=== PATIENT | female | born 1975 | race Caucasian/White ===

== ENCOUNTER 2020-08-26 03:02 | Outpatient (CLI) | payer MEDICAID, SELFPAY ==
[2020-08-26 12:38] LABS: ALT 36 U/L (14-59); AST 21 U/L (15-37); Albumin 4.2 g/dL (3.4-5.0); Alkaline Phosphatase 43 U/L (46-116); BUN 12 mg/dL (7-18); Bilirubin, Total 0.7 mg/dL (0.2-1.0); CREATININE 0.7 mg/dL (0.55-1.02); Chloride 103 mmol/L (98-107); Glucose 96 mg/dL (74-106); Potassium 3.7 mmol/L (3.5-5.1); Sodium 140 mmol/L (136-145); TSH (W/Ref FT4) 0.89 uIU/mL (0.36-3.74); Total Protein 7.2 g/dL (6.4-8.2)
== END 2020-08-26 03:03 | disposition home or self-care (01) ==
LOC: LOS 03:08
DX: E03.9 Hypothyroidism, unspecified (principal); Z13.228 Encounter for screening for other metabolic disorders; Z00.00 Encounter for general adult medical examination without abnormal findings
CPT/HCPCS: 36415; 80053; 84443

== ENCOUNTER 2020-10-15 03:20 | Outpatient (CLI) | payer MEDICAID, SELFPAY ==
--- NOTE | 2020-10-15 06:45 | DI.MAMMO_ITS ---
Exam(s) MAMMO SCREENING EXAM: MAMMO SCREENING CLINICAL HISTORY: screening,Z12.39 TECHNIQUE: Mammograms were interpreted according to the usual protocol including computer analysis w [employer] CAD system, tomosynthesis and C-view imaging. COMPARISON: 2013 from [facility] FINDINGS: The breasts are composed of heterogeneously dense fibroglandular densities, Breast Density category C . No suspicious masses or suspicious microcalcifications are seen. No skin thickening or abnormal axillary lymph nodes are seen. There has been no significant change from prior exam. IMPRESSION: BI-RADS Category 1, Negative mammogram. Yearly screening mammography is recommended. Breast Density Category C, heterogeneously Dense. The mammogram demonstrates the patient's breast tissue is dense. Dense breast tissue is very common a nd is not abnormal but dense breast tissue can make it harder to find cancer on a mammogram. Also, de nse breast tissue may increase breast cancer risk. This information about the result of the mammogram report was provided to the patient to raise their awareness. Use this report when you speak with the patient about their risks for breast cancer, which includes their family history. At that time, you may recommend additional screening tests (Ultrasound or MRI) as they might be useful based on their r isk. A negative radiographic report should not delay biopsy if a dominant or clinically suspicious mass is present. Up to ten percent of cancers are not identified on mammography. A negative report may reinforce clinical impression. Adenosis and dense breasts may obscure an underlying neoplasm. False positive reports average 6 to 10%.
== END 2020-10-15 03:40 ==
DX: Z12.31 Encounter for screening mammogram for malignant neoplasm of breast (principal)
CPT/HCPCS: 77063; 77067

== ENCOUNTER 2020-11-05 01:31 | Outpatient (CLI) | payer MEDICAID, SELFPAY ==
[2020-11-08 10:44] LABS: Lyme Ab w Rflx to Lyme Confirm Negative (Negative)
[2020-11-08 18:51] LABS: Anaplasma phagocytophilum Negative (Negative); B. miyamotoi PCR Negative (Negative); Babesia divergens/MO-1 Negative (Negative); Babesia duncani Negative (Negative); Babesia microti Negative (Negative); Ehrlichia chaffeensis Negative (Negative); Ehrlichia ewingii/canis Negative (Negative); Ehrlichia muris eauclairensis Negative (Negative)
== END 2020-11-05 01:32 | disposition home or self-care (01) ==
LOC: LOS 01:31
DX: R51.9 Headache, unspecified (principal); W57.XXXA Bitten or stung by nonvenomous insect and other nonvenomous arthropods, initial encounter; T14.8XXA Other injury of unspecified body region, initial encounter
CPT/HCPCS: 36415; 87798; 86618

== ENCOUNTER 2021-05-03 04:18 | Outpatient (CLI) | payer MEDICAID, SELFPAY ==
[2021-05-03 09:37] LABS: Abs Immature Grans 0.02 10^3/uL (0.0-0.06); Absolute Basophil Count 0.04 10^3/uL (0.0-0.2); Absolute Eosinophil Count 0.31 10^3/uL (0.0-0.7); Absolute Lymphocyte Count 2.18 10^3/uL (1.2-3.4); Absolute Monocyte Count 0.67 10^3/uL (0.1-0.8); Absolute Neutrophil Count 3.79 10^3/uL (1.2-6.7); Basophils % 0.6; Eosinophils % 4.4; HCT 37.7 % (36.0-46.0); HGB 12.6 g/dL (11.2-15.7); Immature Grans % 0.3; Lymphocytes % 31.1; MCH 31.6 pg (27.0-33.0); MCHC 33.4 % (32.0-36.0); MCV 94.5 fL (80-95); MPV 9.2 fL (8.0-11.0); Monocytes % 9.6; Nucleated RBC 0 %; Platelet Count 289 10^3/uL (130-400); RBC 3.99 10^6/uL (3.93-5.22); RDW 12.5 % (11.7-14.6); RDW-SD 43.8 fL; WBC 7.01 10^3/uL (4.4-10.8)
[2021-05-03 10:00] LABS: Hemoglobin A1C 5.3 % (<5.7)
[2021-05-03 10:37] LABS: Iron 145 ug/dL (50-170); Total Iron Binding Capacity 317 ug/dL (250-450); Transferrin Sat 46 % (15-50)
[2021-05-03 10:48] LABS: TSH (W/Ref FT4) 1.31 uIU/mL (0.36-3.74)
[2021-05-03 10:54] LABS: ALT 28 U/L (14-59); AST 13 U/L (15-37); Alkaline Phosphatase 43 U/L (46-116); Anion Gap 9.7 mmol/L (3-11); BUN 11 mg/dL (7-18); Bilirubin, Total 0.5 mg/dL (0.2-1.0); CO2 25.3 mmol/L (21.0-32.0); CREATININE 0.6 mg/dL (0.55-1.02); Calcium 8.8 mg/dL (8.5-10.1); Calculated LDL 115 mg/dL (<100); Chloride 101 mmol/L (98-107); Cholesterol 198 mg/dL (<200); Ferritin 34 ng/mL (8-252); Glucose 91 mg/dL (74-106); HDL Cholesterol 64 mg/dL (40-60); Potassium 4.3 mmol/L (3.5-5.1); Sodium 136 mmol/L (136-145); T4 4.3 ug/mL (4.7-13.3); Total Protein 7.4 g/dL (6.4-8.2); Triglyceride 97 mg/dL (<150)
[2021-05-03 16:15] LABS: T3,Free 3.9 pg/mL (2.8-5.3)
[2021-05-03 16:33] LABS: T3, Total 166 ng/dL (97-169)
[2021-05-04 10:12] LABS: DHEA Sulfate 87 ug/dL (56-283)
[2021-05-04 14:50] LABS: Zinc, Serum 0.97 mcg/mL (0.66-1.10)
[2021-05-05 00:42] LABS: Vitamin D 25 Total 34.3 ng/mL (30-100)
[2021-05-05 09:55] LABS: Lipoprotein (a) 58 nmol/L (<75)
== END 2021-05-03 04:19 | disposition home or self-care (01) ==
LOC: LBO 04:18
PROVIDERS: Visit Provider Naturopath
DX: E03.9 Hypothyroidism, unspecified (principal); E78.5 Hyperlipidemia, unspecified; E55.9 Vitamin D deficiency, unspecified; L65.9 Nonscarring hair loss, unspecified
CPT/HCPCS: 36415; 80053; 80061; 82306; 82627; 83695; 82728; 83036; 83540; 83550; 84436; 84443; 84480; 84481; 84630; 85025

== ENCOUNTER 2021-08-25 18:21 | Outpatient (CLI) | payer MEDICAID, SELFPAY ==
[2021-08-25 15:57] LABS: FREE T4 0.62 ng/dL (0.76-1.46); TSH 0.72 uIU/mL (0.36-3.74)
[2021-08-25 22:28] LABS: T3,Free 4.5 pg/mL (2.8-5.3)
== END 2021-08-25 18:22 | disposition home or self-care (01) ==
LOC: LBO 18:23
PROVIDERS: Visit Provider Naturopath
DX: R19.5 Other fecal abnormalities (principal); E03.9 Hypothyroidism, unspecified
CPT/HCPCS: 36415; 84439; 84443; 84481; 84482

== ENCOUNTER 2021-08-26 17:50 | Outpatient (REF) | payer MEDICAID, SELFPAY ==
[2021-08-29 13:53] LABS: Helicobacter pylori Ag, Feces Negative (Negative)
[2021-08-29 18:01] LABS: Calprotectin <50.0 mcg/g
== END 2021-08-26 17:51 | disposition home or self-care (01) ==
LOC: LBN 17:50
PROVIDERS: Visit Provider Naturopath
DX: R19.5 Other fecal abnormalities (principal)
CPT/HCPCS: 87338; 83630; 83993

== ENCOUNTER 2021-10-18 02:45 | Outpatient (CLI) | payer MEDICAID, SELFPAY ==
[2021-10-18 13:02] LABS: FREE T4 0.63 ng/dL (0.76-1.46); TSH 1.98 uIU/mL (0.36-3.74)
[2021-10-18 13:19] LABS: T4 2.8 ug/mL (4.7-13.3)
[2021-10-19 17:42] LABS: T3,Free 3.6 pg/mL (2.8-5.3)
[2021-10-19 17:55] LABS: T3, Total 150 ng/dL (97-169)
== END 2021-10-18 02:46 | disposition home or self-care (01) ==
LOC: LOS 02:45
PROVIDERS: Visit Provider Naturopath
DX: E03.9 Hypothyroidism, unspecified (principal)
CPT/HCPCS: 36415; 84436; 84439; 84443; 84480; 84481; 84482

== ENCOUNTER 2021-11-15 03:33 | Outpatient (CLI) | payer MEDICAID, SELFPAY ==
[2021-11-15 10:24] LABS: Iron 97 ug/dL (50-170); Total Iron Binding Capacity 317 ug/dL (250-450); Transferrin Sat 31 % (15-50)
[2021-11-15 10:46] LABS: Ferritin 38 ng/mL (8-252); T4 4.8 ug/mL (4.7-13.3); TSH 1.51 uIU/mL (0.36-3.74)
[2021-11-15 11:04] LABS: FREE T4 0.65 ng/dL (0.76-1.46)
[2021-11-15 18:31] LABS: T3,Free 3.5 pg/mL (2.8-5.3)
[2021-11-15 18:45] LABS: T3, Total 149 ng/dL (97-169)
[2021-11-15 20:45] LABS: Thyroperoxidase Antibody <28 U/mL (<=60)
[2021-11-15 20:47] LABS: Thyroglobulin Antibody 69 U/mL (<=60)
[2021-11-17 04:53] LABS: Vitamin D 25 Total 44.3 ng/mL (30-100)
[2021-11-18 14:24] LABS: T3 (Triiodothyronine) Reverse 7.3 ng/dL (10-24)
[2021-11-23 16:30] LABS: TSH, Sensitive 1.5 mIU/L
== END 2021-11-15 03:34 | disposition home or self-care (01) ==
LOC: LBO 03:33
PROVIDERS: Visit Provider Naturopath
DX: R89.1 Abnormal level of hormones in specimens from other organs, systems and tissues (principal); E55.9 Vitamin D deficiency, unspecified; R53.83 Other fatigue; E03.9 Hypothyroidism, unspecified
CPT/HCPCS: 36415; 82306; 82728; 83540; 83550; 84436; 84439; 84443; 84480; 84481; 84482; 86376; 86800

== ENCOUNTER 2022-05-31 11:23 | Outpatient (REF) | payer MEDICAID, SELFPAY ==
--- NOTE | 2022-05-31 09:07 | PAPFT_PTH ---
PATIENT: Jazmyne Nash LOC: [facility] U#:[id number] AGE/SX: 46/F ROOM: RE05/31/[address]: Ninoska Dey : 1975 BED: DIS: 05/31/2022 SPEC #: [id number] RECD: 05/31/22 12:55 STATUS: IVONNE REJanessa #: [id number] ADRIANNE: 05/31/22 09:[address]: Ninoska Dey DEPT: [facility] Cytology RECD BY: Rohini David ENTERED: 05/31/22 12:56 SP TYPE: PAPFT OTHR DR: Estefanía Dhillon, GUILLERMINA Tissues: 1 - CX/ENDOCX FOR PAP SMEARS Procedures: PAP THIN PREP/UVM Screening HPV DNA PROBE Comments: [id number]
== END 2022-05-31 11:24 | disposition home or self-care (01) ==
LOC: LBN 11:23
PROVIDERS: PCP Nurse Practitioner Family; Visit Provider Family Medicine
DX: Z12.4 Encounter for screening for malignant neoplasm of cervix (principal); Z11.51 Encounter for screening for human papillomavirus (HPV)
CPT/HCPCS: 88142; 87624

== ENCOUNTER 2022-06-07 02:52 | Outpatient (CLI) | payer MEDICAID, SELFPAY ==
[2022-06-07 12:41] LABS: TSH (W/Ref FT4) 0.01 uIU/mL (0.36-3.74)
[2022-06-07 22:45] LABS: T3,Free 5.1 pg/mL (2.8-5.3)
[2022-06-07 22:58] LABS: T3, Total 180 ng/dL (97-169)
[2022-06-08 10:52] LABS: Thyroglobulin Antibody 145 U/mL (<=60); Thyroperoxidase Antibody <28 U/mL (<=60)
== END 2022-06-07 02:53 | disposition home or self-care (01) ==
PROVIDERS: PCP Family Medicine; Visit Provider Family Medicine
DX: E03.9 Hypothyroidism, unspecified (principal)
CPT/HCPCS: 36415; 86376; 84439; 84443; 84480; 84481

== ENCOUNTER 2022-07-28 01:51 | Outpatient (CLI) | payer MEDICAID, SELFPAY ==
[2022-07-28 10:08] LABS: TSH (W/Ref FT4) 2.48 uIU/mL (0.36-3.74)
[2022-07-28 20:24] LABS: T3,Free 3.8 pg/mL (2.8-5.3)
[2022-07-28 20:38] LABS: T3, Total 146 ng/dL (97-169)
== END 2022-07-28 01:52 | disposition home or self-care (01) ==
PROVIDERS: PCP Family Medicine; Visit Provider Family Medicine
DX: E03.9 Hypothyroidism, unspecified (principal)
CPT/HCPCS: 36415; 84443; 84480; 84481

== ENCOUNTER 2023-01-19 13:28 | Outpatient (CLI) | payer MEDICAID, SELFPAY | END 2023-01-19 13:29 | disposition home or self-care (01) | LOC: DI.CM 13:30 | PROVIDERS: PCP Family Medicine; Visit Provider Family Medicine | DX: R00.2 Palpitations (principal) | CPT/HCPCS: 93010 ==

== ENCOUNTER 2023-02-07 16:07 | Outpatient (CLI) | payer MEDICAID, SELFPAY ==
[2023-01-19 15:31] LABS: TSH 3.47 uIU/mL (0.36-3.74)
[2023-01-19 16:10] LABS: T4 3.6 ug/dL (4.7-13.3)
[2023-01-19 22:10] LABS: T3,Free 3.2 pg/mL (2.8-5.3)
[2023-01-19 22:23] LABS: T3, Total 131 ng/dL (97-169)
[2023-01-19 23:25] LABS: Thyroglobulin Antibody 67 U/mL (<=60); Thyroperoxidase Antibody 33 U/mL (<=60)
[2023-01-23 13:36] LABS: T3 (Triiodothyronine) Reverse 9.9 ng/dL (10-24)
== END 2023-02-07 16:08 | disposition home or self-care (01) ==
LOC: LBO 16:07
PROVIDERS: PCP Family Medicine; Visit Provider Family Medicine
DX: E03.9 Hypothyroidism, unspecified (principal)
CPT/HCPCS: 36415; 84479; 86376; 84436; 84443; 84480; 84481; 84482

== ENCOUNTER → 2023-03-30 21:27 | Outpatient (CLI) | payer MEDICAID, SELFPAY ==
--- NOTE | 2023-03-30 16:12 | DI.RAD_ITS ---
Exam(s) XR SHOULDER RT COMPLETE 2+V EXAM: XR SHOULDER RT COMPLETE 2+V CLINICAL HISTORY: M19.019 Primary osteoarthritis, right AC joint pain. TECHNIQUE: 2D digital imaging was performed. COMPARISON: No exams were available for comparison FINDINGS: Five views There is no evidence of fracture or dislocation nor abnormal soft tissue calcifications. Subacromial space appears unremarkable. There is no narrowing of the glenohumeral joint. No osteophytes. Bone density normal. No osseous lesions. AC joint appears unremarkable. Clavicle unremarkable. No os acromiale. IMPRESSION: No significant osseous findings in the right shoulder. DATA REPOSITORY: RADIATION DOSE DELIVERED:
== END ==
PROVIDERS: PCP Family Medicine; Visit Provider Family Medicine
DX: M19.011 Primary osteoarthritis, right shoulder (principal)
CPT/HCPCS: 73030

== ENCOUNTER 2023-06-19 04:21 | Outpatient (CLI) | payer MEDICAID, SELFPAY ==
[2023-06-19 10:32] LABS: TSH (W/Ref FT4) 1.94 uIU/mL (0.36-3.74)
[2023-06-19 18:42] LABS: T3,Free 3.9 pg/mL (2.8-5.3)
[2023-06-19 19:14] LABS: Prolactin 13.5 ng/mL (See Note)
== END 2023-06-19 04:22 | disposition home or self-care (01) ==
LOC: LBO 04:21
PROVIDERS: PCP Family Medicine; Visit Provider Family Medicine
DX: E03.8 Other specified hypothyroidism (principal); E06.3 Autoimmune thyroiditis; N64.3 Galactorrhea not associated with childbirth
CPT/HCPCS: 36415; 84146; 84443; 84481

== ENCOUNTER → 2023-08-08 04:17 | Outpatient (CLI) | payer MEDICAID, SELFPAY ==
--- NOTE | 2023-08-08 | DI.MAMMO_ITS ---
Exam(s) US BREAST RT COMPLETE MG MAMMO DIAGNOSTIC BI EXAM: MG MAMMO DIAGNOSTIC BI AND COMPLETE RIGHT BREAST ULTRASOUND CLINICAL HISTORY: DISCHARGE FROM RT NIPPLE,N64.52. TECHNIQUE: BOTH CC AND MLO BILATERAL mammographic images were obtained with 3D tomosynthesis [email or web address] and utilizing computer aided detection (CAD). ALSO performed spot compression view of the right breast. COMPLETE RIGHT BREAST ULTRASOUND was also performed, including all 4 quadrants well as the axilla. COMPARISON: Prior mammograms were reviewed, the most recent being October 2020.. This 47-year-old patient had a recent episode of unilateral right-sided nonbloody nipple discharge. She does not feel a lump. No fever. No skin abnormalities. FINDINGS: DIAGNOSTIC BILATERAL MAMMOGRAM: The fibroglandular tissue is again noted to be moderately dense, this somewhat decreasing the sensiti vity of the mammogram for finding hidden underlying lesions. There are no spiculated masses nor malignant-appearing microcalcification groups in either breast. There is no significant architectural distortion or skin thickening-retraction. COMPLETE RIGHT BREAST ULTRASOUND: There are no dilated retroareolar ducts. No solid lesions seen in all 4 quadrants. At the 10 o'clock position there are 2 adjacent benign microcyst measuring 9 and 8 mm. No other find ings in all 4 quadrants. Scanning of the right axilla is negative for adenopathy. IMPRESSION: 1. Dense bilateral fibroglandular tissue. No radiographic evidence of malignancy. 2. Benign right breast ultrasound findings (2 adjacent microcysts at 10 o'clock position). No solid nodules seen on complete right breast ultrasound. 3. No axillary adenopathy Appropriate follow-up is sampling of any future discharge for cytology/culture. The patient was informed of the findings and follow-up recommendations by myself prior to leaving the department today. BI-RADS Category 2 - Benign Findings Breast Density - Category C - Heterogeneously dense Breast density Category C or D implies that the patient has dense breast tissue. Dense breast tissue can make it harder to find cancer on a mammogram. Dense breast tissue is also associated with an incr eased risk of breast cancer. This information about the result of the mammogram report was provided to the patient to raise their awareness. Use this report when you speak with the patient about their risks for breast cancer, which includes their family history. At that time, you may recommend additional screening tests (Ultrasoun d or MRI) as these tests may add significant information. A negative radiographic report should not delay biopsy if a dominant or clinically suspicious mass is present. Up to ten percent of cancers are not identified on mammography. A negative report may reinforce clinical impression. Adenosis and dense breasts may obscure an underlying neoplasm. False positive reports average 6 to 10%. Patient will receive a letter notifying them of these results.
== END ==
PROVIDERS: PCP Family Medicine; Visit Provider Acupuncturist
DX: Z12.31 Encounter for screening mammogram for malignant neoplasm of breast (principal); R92.323 Mammographic fibroglandular density, bilateral breasts
CPT/HCPCS: 76642; 77062; 77066; G0279

== ENCOUNTER 2023-08-16 01:19 | Outpatient (CLI) | payer MEDICAID, SELFPAY ==
[2023-08-16 19:52] LABS: Estradiol 145 pg/mL (See Note); Progesterone 9.9 ng/mL (See Table)
[2023-08-17 08:24] LABS: Homocysteine 8.2 umol/L (5.0-13.9)
[2023-08-17 09:42] LABS: Insulin 4.6 uIU/mL (<29.0)
[2023-08-22 16:05] LABS: Testosterone, Total 17 ng/dL (8-60)
== END 2023-08-16 01:20 | disposition home or self-care (01) ==
LOC: LBO 01:19
PROVIDERS: PCP Family Medicine; Visit Provider Acupuncturist
DX: Z78.0 Asymptomatic menopausal state (principal); R53.83 Other fatigue
CPT/HCPCS: 36415; 82533; 83090; 84403; 82670; 83525; 83735; 84144

== ENCOUNTER 2023-09-20 15:38 | Outpatient (CLI) | payer MEDICAID, SELFPAY ==
--- NOTE | 2023-09-20 13:30 | DI.RAD_ITS ---
Exam(s) XR HIP LT COMPLETE AP PELVIS EXAM: XR HIP LT COMPLETE AP PELVIS CLINICAL HISTORY: LEFT HIP PAIN. TECHNIQUE: 2D digital imaging was performed of the left hip. Two views were obtained. AP pelvis an d lateral left hip views were obtained. COMPARISON: No exams were available for comparison FINDINGS: BONES: No acute fracture is present. No bony destructive lesion is seen. JOINTS: No dislocation present. The hip joints are well maintained as are the sacroiliac joints and s ymphysis pubis. SOFT TISSUE: Normal. IMPRESSION: Unremarkable radiographs of the left hip. Unremarkable radiographs of the pelvis DATA REPOSITORY: RADIATION DOSE DELIVERED:
== END 2023-09-20 15:39 | disposition home or self-care (01) ==
LOC: DIORS 15:38
PROVIDERS: PCP Acupuncturist; Visit Provider Physician Assistant
DX: M25.552 Pain in left hip (principal)
CPT/HCPCS: 73502

== ENCOUNTER 2024-04-08 14:14 | Outpatient (CLI) | payer MEDICAID, SELFPAY ==
--- NOTE | 2024-04-08 11:10 | DI.RAD_ITS ---
Exam(s) XR CHEST 2V PA LATERAL EXAM: XR CHEST 2V PA LATERAL CLINICAL HISTORY: LUTHER R06.09. TECHNIQUE: 2D digital imaging was performed. COMPARISON: No exams were available for comparison FINDINGS: 2 views: Heart size is normal. The mediastinum is not widened. Right lung is clear. There are mild increased markings in the left lower lobe. No pleural effusions . No pneumothorax. No fractures. IMPRESSION: There is slightly increased markings in the left lung base region. Possibly mild infiltrate. Best s een on the frontal view. No pleural effusions. Appropriate follow-up recommended. DATA REPOSITORY: RADIATION DOSE DELIVERED:
--- NOTE | 2024-04-08 11:10 | DI.RAD_ITS ---
Exam(s) XR FOOT LT COMPLETE EXAM: XR FOOT LT COMPLETE CLINICAL HISTORY: PAIN LEFT HEEL/FOOT M79.672. TECHNIQUE: 2D digital imaging was performed. Three views. COMPARISON: No exams were available for comparison FINDINGS: BONES: No acute fracture is present. No bony destructive lesion is seen. Tiny plantar calcaneal spu r. JOINTS: No dislocation present. Mild degenerative changes at the 1st MTP joint. No significant rudi lux valgus. SOFT TISSUE: Soft tissue prominence at 1st metatarsal head. IMPRESSION: Mild degenerative changes at the 1st MTP joint DATA REPOSITORY: RADIATION DOSE DELIVERED:
== END 2024-04-08 14:34 ==
LOC: DI 14:15
PROVIDERS: PCP Family Medicine; Visit Provider Family Medicine
DX: R06.09 Other forms of dyspnea (principal); M79.672 Pain in left foot
CPT/HCPCS: 71046; 73630

== ENCOUNTER 2024-05-20 02:31 | Outpatient (CLI) | payer MEDICAID, SELFPAY ==
--- NOTE | 2024-05-20 11:30 | DI.MRI_ITS ---
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 COMPARISON: CR XR HIP LT COMPLETE AP PELVIS from 09/20/2023 FINDINGS: MARROW:There is no evidence of fracture, bone contusion, nor avascular necrosis. There are no signif icant osseous lesions. Small synovial pits are seen on the anterior aspect of both femoral heads, me asuring 5 mm on the right side and 3 mm on the left side. No surrounding edema in either femoral hea d. On the dedicated sequences of the left hip there is a small bony excrescence off the anterior aspect of the left femoral head-neck junction which measures approximately 5 mm wide by 2 mm deep, not assoc iated with bone edema in the ipsilateral femoral head-neck and located slightly medial to the tiny sy novial pit described above. There is no obvious evidence of acetabular over reach. EFFUSION: There is symmetrical upper normal amount of joint fluid in both hips. No loose intra-artic ular bodies. HIP JOINT SPACE: No obvious chondral defects.There is no hypertrophy of the ligamentum teres nor sign al abnormality at the fovea centralis.There are no degenerative subarticular cysts. LABRUM: There is some signal abnormality in the anterior-superior glenoid labrum which has the appear ance of cystic degenerative change. There is no evidence of paralabral cyst. TENDONS: There is some fluid signal in soft tissues lateral to the greater trochanter around the jaylon on of the gluteus medius tendon. There is no abnormal intraosseous signal within the greater trochan ter itself. ISCHIAL TUBEROSITY/HAMSTRING: There is mild signal abnormality in the ipsilateral common hamstrings t endon consistent with mild tendinitis. No high-grade tear. No abnormal intraosseous signal in the i schial tuberosity nor within the pubic rami. OTHER: There is no abnormal intramuscular signal within the quadratus femoris to suggest the presence of impingement syndrome at this level. IMPRESSION: 1. 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 No obvious pincer-type ALEXANDRA. 2. No osteoarthritic degenerative changes evident. 3. Some increased signal seen in the soft tissues lateral to the greater trochanter probably indicati ng element of tendinitis related to the gluteus medius. However, please note that any recent therape utic injections into this area can cause similar signal abnormality. DATA REPOSITORY:
== END 2024-05-20 02:51 ==
PROVIDERS: PCP Family Medicine; Visit Provider Family Medicine
DX: M25.852 Other specified joint disorders, left hip (principal)
CPT/HCPCS: 73721

== ENCOUNTER 2024-05-23 00:25 | Outpatient (CLI) | payer MEDICAID, SELFPAY ==
--- NOTE | 2024-05-23 06:30 | DI.RAD_ITS ---
Exam(s) XR CHEST 2V PA LATERAL EXAM: XR CHEST 2V PA LATERAL CLINICAL HISTORY: Follow-up chest x-ray,ABNL FINDINGS,R93.89,QUESTIONABLE MILD INFILTRATE. TECHNIQUE: 2D digital imaging was performed. COMPARISON: CR XR CHEST 2V PA LATERAL from 04/08/2024 FINDINGS: 2 views: Heart size is normal. The mediastinum is not widened. No infiltrates nor pleural effusions. Previously described small area of increased markings in the l eft lung base has significantly decreased. There presently no infiltrates. No pleural effusions. IMPRESSION: No acute pulmonary findings. DATA REPOSITORY: RADIATION DOSE DELIVERED:
== END 2024-05-23 00:45 ==
LOC: DI 00:25
PROVIDERS: PCP Family Medicine; Visit Provider Family Medicine
DX: R93.89 Abnormal findings on diagnostic imaging of other specified body structures (principal)
CPT/HCPCS: 71046

== ENCOUNTER 2024-06-23 01:26 | Outpatient (CLI) | payer MEDICAID, SELFPAY ==
--- NOTE | 2024-06-23 06:45 | DI.RAD_ITS ---
Exam(s) XR FOOT LT COMPLETE EXAM: XR FOOT LT COMPLETE CLINICAL HISTORY: Left foot pain,M79.672. TECHNIQUE: 2D digital imaging was performed. Three views. COMPARISON: CR XR FOOT LT COMPLETE from 04/08/2024 FINDINGS: BONES: No acute fracture is present. No bony destructive lesion is seen. Tiny plantar calcaneal spu r. JOINTS: No dislocation present. Mild narrowing of 1st MTP joint and mild periarticular spurring. SOFT TISSUE: Normal. IMPRESSION: Mild degenerative changes of 1st MTP joint. Tiny plantar calcaneal spur. DATA REPOSITORY: RADIATION DOSE DELIVERED:
== END 2024-06-23 01:46 ==
LOC: DI 01:26
PROVIDERS: PCP Family Medicine; Visit Provider Podiatrist
DX: M79.672 Pain in left foot (principal)
CPT/HCPCS: 73630

== ENCOUNTER 2024-08-08 13:28 | Outpatient (CLI) | payer MEDICAID, SELFPAY ==
[2024-08-08 14:36] LABS: TSH (W/Ref FT4) 1.42 uIU/mL (0.36-3.74)
== END 2024-08-08 13:29 | disposition home or self-care (01) ==
LOC: LBO 13:28
PROVIDERS: PCP Family Medicine; Visit Provider Family Medicine
DX: E03.9 Hypothyroidism, unspecified (principal); E03.8 Other specified hypothyroidism; E06.3 Autoimmune thyroiditis
CPT/HCPCS: 36415; 84443

== ENCOUNTER 2024-12-11 14:55 | Outpatient (CLI) | payer MEDICAID, SELFPAY ==
[2024-12-11 12:19] LABS: Vitamin D 25 Total 76 ng/mL (30-100)
== END 2024-12-11 14:56 | disposition home or self-care (01) ==
LOC: LBO 14:56
PROVIDERS: PCP Family Medicine; Visit Provider Naturopath
DX: E55.9 Vitamin D deficiency, unspecified (principal)
CPT/HCPCS: 36415; 82306